=== PATIENT | male | born 1990 | race Caucasian/White ===

== ENCOUNTER 2022-05-27 10:57 | Emergency (ER) | payer SELFPAY ==
[2022-05-27 11:04] VITALS: BP 157/97; PULSE 107; RESP 18; TEMP 36.7; O2SAT 100
--- NOTE | 2022-05-27 12:47 | W.ED.GENAD ---
Discharge Plan Disposition Patient Disposition: HOME Condition: Stable Discharge Details Clinical Impression: Pain, dental Primary Care Provider: Claudia,Local ED Provider: Maki Samaniego Home Meds and New Rx's Prescriptions: New penicillin V potassium 500 mg tablet 500 mg PO QID Qty: 40 0RF oxycodone 5 mg capsule 5 mg PO Q8H PRNQty: 6 0RF Discharge Instructions Instructions: Toothache (ED) Additional Instructions: take antibiotic as prescribed motrin/tylenol as needed for pain oxycodone as needed for pain, this is addictive and you should not drive for 8 hours yogurt daily while on antibiotic follow-up with dentist return earlier with new or worsening complaints Discharge Data Discharge Date/Time-TO BE ENTERED AT DEPARTURE: 05/27/22 13:52 Medical Decision Making Patient tolerated procedure without incident Placed on penicillin small amount of oxycodone with risk of addiction reviewed Discharged home with improvement of pain in stable condition with stable vitals, no evidence of Armando's angina dental list supplied Medical Records Medical records reviewed: Yes I reviewed the patient's medical records. Lab Data Lab results reviewed: Yes I reviewed the patient's lab results. HPI General Date/Time Provider Initiated Documentation: 05/27/22 11:29. HPI Narrative: This 31-year-old male presents with dental pain which started several weeks ago but is worsening. He is here traveling from [place]. Denies any difficulty opening jaw. He denies any fever or chills. He denies any chest pain or shortness of breath. Related Data Home Medications Medication Instructions Recorded Confirmed oxycodone 5 mg capsule 5 mg PO Q8H PRN #6 caps 05/27/22 penicillin V potassium 500 mg 500 mg PO QID #40 tabs 05/27/22 tablet Previous Rx's Medication Instructions Recorded oxycodone 5 mg capsule 5 mg PO Q8H PRN #6 caps 05/27/22 penicillin V potassium 500 mg 500 mg PO QID #40 tabs 05/27/22 tablet Allergies Allergy/AdvReac Type Severity Reaction Status Date / Time No Known Allergies Allergy Unverified 05/27/22 11:10 General Stated Complaint: DentalOral ASHOK: 4 Review of Systems All systems reviewed & are unremarkable except as noted in HPI and below PFSH All Active Problems (Updated 05/27/22 @ 12:53 by DIAMOND Vu) Pain, dental (Acute) Social History Smoking/Tobacco Use Status: Current every day Tobacco Type: cigarettes Smoking risk assessment performed?: Yes Alcohol Intake: never Drug use: Never Substance use type: does not use Do you feel safe at home: Yes Do you feel safe in your relationship?: Yes Exam Const General: cooperative, comfortable and no acute distress [facility] Teeth image: 1. fx swelling and decay Other: no trismus or evidence of deep space infection Eyes Pupils: PERRL Resp Effort & Inspection: normal respiratory effort Auscultation: clear to auscultation bilaterally Cardio Rate: regular rate Rhythm: regular rhythm Course Vital Signs Vital signs: Vital Signs Temperature 36.7 C 05/27/22 11:04 Pulse 107 H 05/27/22 11:04 Respiratory Rate 18 05/27/22 11:04 Blood Pressure 157/97 H 05/27/22 11:04 Pulse Oximetry 100 05/27/22 11:04 Temperature 36.7 C 05/27/22 11:04 Temperature Source Temporal Artery Scan 05/27/22 11:04 Pulse 107 H 05/27/22 11:04 Respiratory Rate 18 05/27/22 11:04 Respiratory Effort Non-Labored 05/27/22 11:07 Blood Pressure 157/97 H 05/27/22 11:04 Blood Pressure Position Sitting 05/27/22 11:04 Pulse Oximetry 100 05/27/22 11:04 Oxygen Delivery Method Room Air 05/27/22 11:04 Oxygen Flow Rate 0 05/27/22 11:04 Pain Level 6 05/27/22 11:04 Procedures Nerve Block Nerve Block 1: Time out performed: Yes Local Anesthetic: Bupivicaine 0.5% Amount of anesthesia used (mL): 3 Nerve Blocks: other Intraoral Nerve Block: supraperiosteal and superior alveolar Procedure Successful: Yes Patient Tolerated Procedure: well Complications: pain with procedure
[2022-05-27] MEDS: Bupivacaine 0.5% Pres-Free 30 ML VIAL (12:48)
[2022-05-27 12:57] VITALS: BP 150/108; PULSE 77; RESP 16; TEMP 36.6; O2SAT 98
== END 2022-05-27 13:52 | disposition home or self-care (01) ==
PROVIDERS: Emergency Provider Physician Assistant
DX: K02.9 Dental caries, unspecified (principal); S02.5XXA Fracture of tooth (traumatic), initial encounter for closed fracture; F17.210 Nicotine dependence, cigarettes, uncomplicated; X58.XXXA Exposure to other specified factors, initial encounter
CPT/HCPCS: 64400; 99283; 99284